=== PATIENT | female | born 1975 | race Caucasian/White ===

== ENCOUNTER 2020-12-10 08:44 | Emergency (ER) | payer OTHER ==
[~2020-12-10] VITALS: Ht 162.6 cm; Wt 66.0 kg
[2020-12-10] MEDS ORDERED: MORPHINE SULFATE 4 MG/ML CPJ (NOT FOR IM USE) IV STA (09:00)
[2020-12-10 09:28] LABS: BASOPHILS % 0.4 % (0.0-2.0); EOSINOPHILS % 0.5 % (0.0-5.0); HEMATOCRIT. 39.1 % (36.0-48.0); LYMPHOCYTES % 19.5 % (20.0-50.0); MEAN CORPUSCULAR VOLUME 81.2 fL (81.0-99.0); MEAN PLATELET VOLUME 6.9 fl (7.4-10.4); MONOCYTES % 5.3 % (2.0-8.0); NEUTROPHILS % 74.3 % (40.0-76.0); PLATELET 327 x1000/uL (130-400); RED BLOOD CELL COUNT 4.81 mill/uL (4.2-5.4); RED CELL DISTRIBUTION WIDTH 14.3 % (11.6-14.6)
[2020-12-10 09:29] LABS: CHLORIDE 109 mEq/L (98-107)
[2020-12-10] MEDS ORDERED: PROPOFOL 200MG/20ML VIAL IV ONE (10:45)
[2020-12-10] MEDS ORDERED: ONDANSETRON HCL 4MG/2ML INJ IV ONE (10:45)
[2020-12-10] MEDS ORDERED: KETAMINE HCL 50 MG/ML 10ML IV ONE (10:45)
[2020-12-10] MEDS ORDERED: IBUP-2028 PO (11:43)
[2020-12-10] MEDS ORDERED: MORPHINE SULFATE 4 MG/ML CPJ (NOT FOR IM USE) IV ONE ×3 (12:15→16:15)
[2020-12-10 19:26] VITALS: BP 168/84
== END 2020-12-10 19:55 | disposition admitted as inpatient to this hospital (09) ==
LOC: ER 08:44
DX: S82.302A Unspecified fracture of lower end of left tibia, initial encounter for closed fracture (principal); S82.492A Other fracture of shaft of left fibula, initial encounter for closed fracture; W01.0XXA Fall on same level from slipping, tripping and stumbling without subsequent striking against object, initial encounter; Y93.01 Activity, walking, marching and hiking; Y92.9 Unspecified place or not applicable
CPT/HCPCS: 27752; 36415; 73590; 80053; 85025; 93005; 96374; 96375; 96376; 99152; 99285; J2270; J2405; J2704; J3490; Z7610